=== PATIENT | female | born 1960 | race Caucasian/White ===

== ENCOUNTER 2018-07-20 11:11 | Outpatient (CLI) | payer OTHER ==
--- NOTE | 2018-07-20 12:31 | RAD ---
PA AND LATERAL VIEWS CHEST: HISTORY: TRC. FINDINGS: Comparison is made with the exam of 07/31/2017. The heart size is normal. The aorta is tortuous. The lungs are expanded without focal areas of cons olidation, pneumothoraces, or pleural effusions. No acute osseous abnormalities are seen. IMPRESSION: No radiographic evidence of acute cardiopulmonary process. POS: NIRAJH
== END 2018-07-20 11:12 | disposition home or self-care (01) ==
LOC: BICRAD 11:11
PROVIDERS: ATTEND Internal Medicine
DX: Z02.71 Encounter for disability determination (principal)
CPT/HCPCS: 71046

== ENCOUNTER 2019-11-25 03:01 | Observation (INO) | payer MEDICARE, MEDICAID ==
[2019-11-25 04:11] LABS: Troponin I Less than 0.010 ng/mL (< 0.028)
[2019-11-25 04:41] VITALS: BMI 37.1
[2019-11-25] MEDS ORDERED: hydrALAZINE 20 MG/ML VIAL SLOW IVP PRN (04:50)
[2019-11-25] MEDS ORDERED: Ondansetron ODT 4 MG TAB PO PRN (04:50)
[2019-11-25] MEDS ORDERED: Acetaminophen 500 MG TAB PO PRN (04:50)
[2019-11-25] MEDS ORDERED: Ondansetron PF 4 MG/2 ML Vial IVP PRN (04:50)
--- NOTE | 2019-11-25 06:09 | HP ---
PRIMARY CARE PROVIDER: Dr. Villanueva. CHIEF COMPLAINT: Chest pain. HISTORY OF PRESENT ILLNESS: This is a 59-year-old female, who presents to [facility] in transfer from [facility], where the patient has complained of approximately 48-hour history of central chest pain radiating to the left upper shoulder and upper back. The patient states that the pain would occur at rest or with movement, progressing in the last 24 hours. The patient denied any direct trauma, injury, increased cough, congestion, or fever. The patient denied any exposure history or travel. The patient denies any known history of coronary artery disease and states she previously was taking aspirin 81 mg daily, but ran out of the medication in the last 4 weeks. The patient states she has been compliant with her other chronic medications and states she has a history of stroke with residual dysarthria and some leg weakness. The patient denies any strong family history of coronary artery disease, but states she has never had a formal stress test. The patient initially described the pain as pressure-like, rating at 6/10, worse with movement and relieved after burping. In the emergency room, the patient received aspirin 325 mg with initial workup unrevealing. EKG showed no acute process, and the patient was referred to the Hospitalist Service for evaluation. PAST MEDICAL HISTORY: 1. History of hemorrhagic CVA. 2. History of lacunar infarcts. 3. 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 4. Hypertension. 5. Chronic obstructive pulmonary disease. 6. Hyperlipidemia. 7. Remote tobacco use. PAST SURGICAL HISTORY: 1. Status post section x2. 2. Status post cholecystectomy. CURRENT MEDICATIONS: 1. Amlodipine 10 mg p.o. daily. 2. Lisinopril/hydrochlorothiazide 10/12.5 mg one tablet p.o. daily. 3. Carvedilol 3.125 mg p.o. b.i.d. ALLERGIES: TO CODEINE SULFATE. FAMILY HISTORY: No inheritable diseases per patient or report. SOCIAL HISTORY: Resides in [place], [place]. Lives with her daughter. Disabled. Quit smoking in the last five years. No alcohol or illicit drug use. REVIEW OF SYSTEMS: CONSTITUTIONAL: Negative for weight loss or gain, ability to conduct usual activities. SKIN: Negative for rash, itching. EYES: Negative for double vision, pain. ENT/MOUTH: Negative for nose bleeding, neck stiffness, pain, tenderness. CARDIOVASCULAR: Negative for palpitations, dyspnea on exertion, orthopnea. RESPIRATORY: Negative for shortness of breath, wheezing, cough, hemoptysis, fever or night sweats. GASTROINTESTINAL: Negative for poor appetite, abdominal pain, heartburn, nausea, vomiting, constipation, or diarrhea. GENITOURINARY: Negative for urgency, frequency, dysuria, nocturia. MUSCULOSKELETAL: Negative for pain, swelling. NEUROLOGIC/PSYCHIATRIC: Negative for anxiety, depression. ALLERGY/IMMUNOLOGIC: Negative for skin rash, bleeding tendency. Otherwise negative except as stated per HPI. PHYSICAL EXAMINATION: VITAL SIGNS: On admission, blood pressure 115/89, pulse 58, respiratory rate 17, temperature 97.7 degrees Fahrenheit, and O2 saturation 95% on room air. GENERAL APPEARANCE: This is a 59-year-old female, alert and oriented x3, pleasant, responsive, in no acute distress. HEENT: Pupils are equal, round, and reactive to light and accommodation. Her extraocular muscles are intact. No scleral icterus. No conjunctival injection. Nares are patent. OP is clear. Teeth in fair repair. NECK: Supple. No cervical adenopathy. No thyromegaly. No carotid bruits. No JVD appreciated. Cervical spine with full active and passive range of motion. No meningeal signs noted. LUNGS: Diminished breath sounds in the bases bilaterally, otherwise clear. CARDIOVASCULAR: S1 and S2 without noted murmur, rub, or gallop. ABDOMEN: Obese, soft, nontender, and nondistended. Bowel sounds are positive in all 4 quadrants. There is no hepatosplenomegaly. No abdominal bruits. No rebound or guarding appreciated. EXTREMITIES: Warm and dry with fair turgor. No clubbing, cyanosis, or asymmetric edema appreciated. Pulses are palpable distally at the dorsalis pedis, posterior tibial, and popliteal arteries bilaterally. Capillary refill less than 2 seconds. NEUROLOGIC: Mild dysarthria. Bilateral lower extremity leg weakness noted. The patient not observed ambulatory during this exam. PERTINENT LABORATORY AND X-RAY FINDINGS: Sodium 143, potassium 3.3, chloride 105, CO2 of 25, BUN 18, creatinine 0.92, estimated GFR of 63, glucose 83, and calcium 9.5. Troponin I negative x2. BNP 10, lipase 8. CBC showed a white blood cell count of 6.9, hemoglobin 15, hematocrit 46, platelet count 148 with normal differential. EKG dated 11/25/2019, by my interpretation shows sinus bradycardia with heart rates in the 50s. Normal R-wave progression noted in the precordial leads. Normal axis. No acute ST-T wave changes appreciated. Portable chest x-ray dated 11/24/2019, showed no acute cardiopulmonary process. CT angiogram of the chest dated 11/24/2019, showed no evidence for pulmonary embolus. ASSESSMENT AND PLAN: 1. Chest pain. The patient will be observed on the telemetry unit. We will proceed with Cardiolite stress testing in the a.m. Check fasting lipid profile. Continue aspirin 81 mg daily. 2. Gastroesophageal reflux. Suspected component of patient's presentation. Continue Pepcid 20 mg p.o. b.i.d. 3. Hypertension. Resume home blood pressure regimen and monitor clinical response. 4. Hyperlipidemia. Check fasting lipid profile in the a.m. 5. Prophylaxis. SCDs while in bed. Pepcid 20 mg p.o. b.i.d. 6. Code status is full. Surrogate medical decision maker is patient's spouse. Job ID: [id number]
[2019-11-25 07:43] LABS: Troponin I Less than 0.010 ng/mL (< 0.028)
[2019-11-25] MEDS ORDERED: Aspirin 325 mg Enteric Coated Tablet PO SCH (09:00)
[2019-11-25] MEDS ORDERED: Carvedilol 3.125 MG TAB PO SCH (09:00)
[2019-11-25] MEDS ORDERED: Lisinopril/Hydrochlorothiazide 10 mg/12.5 mg Tablet PO SCH (09:00)
[2019-11-25] MEDS ORDERED: Amlodipine 10 MG TAB PO SCH (09:00)
[2019-11-25] MEDS ORDERED: Famotidine 20 MG TAB PO SCH (09:00)
[2019-11-25] MEDS ORDERED: Regadenoson 0.4 MG/5 ML SYRINGE ONE (09:34)
[2019-11-25 11:20] VITALS: BP 117/59
[2019-11-25 12:20] VITALS: TEMP 98.8
--- NOTE | 2019-11-25 12:26 | NM ---
NUCLEAR MEDICINE CARDIAC STRESS WITH EF AND WALL MOTION: HISTORY: Chest pain. COMPARISON: None. TECHNIQUE: Stress only images were performed. Patient was administered 29.40 mCi of technetium 99m se stamibi. FINDINGS: Homogeneous distribution of the radiotracer. End-diastolic volume is 89 mL. End systolic volume is 30 mL. Cardiac gating: Normal wall motion and thickening. 67% ejection fraction. IMPRESSION: 1. Homogeneous distribution of radiotracer. 2. 67% ejection fraction. Transcribed Date/Time: 11/25/2019 1:00 PM
[2019-11-25 13:58] LABS: Troponin I Less than 0.010 ng/mL (< 0.028)
--- NOTE | 2019-11-25 14:32 | DIS ---
DATE OF ADMISSION: 11/25/2019 DATE OF DISCHARGE: 11/25/2019 PRIMARY CARE PROVIDER: Dr. Sybil Villanueva. DISCHARGE DIAGNOSES: 1. Chest pain. 2. Chest pain, most likely secondary to musculoskeletal etiology. DISCHARGE MEDICATIONS: No change was made to her pre-admission home medications. HOSPITAL COURSE: Ms. Rainey is a pleasant 59-year-old lady, who was admitted to [facility] on November 25, 2019 for chest pain. Please refer to Dr. Boone's history and physical note dated November 25, 2019. CT scan of the chest did not show any evidence of pulmonary thromboembolism. She had a left adrenal mass. She has been advised to follow up with her primary care provider for the same. She also had nuclear stress test, which showed homogeneous distribution of the tracer. Left ventricular ejection fraction was 67%. Chest pain resolved, and she is being discharged to home in a stable condition. POST ACUTE CARE FOLLOWUP: With primary care provider in 3 days. DISCHARGE DESTINATION: Home. DIET: Heart healthy. Job ID: [id number]
[2019-11-25] MEDS ORDERED: Atorvastatin Calcium 40 MG TAB PO SCH (21:00)
--- NOTE | 2019-11-29 14:46 | EKG ---
Test Reason : Blood Pressure : / mmHG Vent. Rate : 057 BPM Atrial Rate : 057 BPM P-R Int : 174 ms QRS Dur : 094 ms QT Int : 448 ms P-R-T Axes : 057 006 009 degrees QTc Int : 436 ms Sinus bradycardia No ST elevation Otherwise normal ECG Confirmed by ALVERTO PAGE M.D. ([id number]), editor & co founder KELSEY ORTIZ ([id number] on 11/29/2019 2:46:34 PM Referred By: Confirmed By:ALVERTO PAGE M.D.
--- NOTE | 2019-12-04 11:38 | STRESS ---
Acquisition Time: 2019-11-25 09:29:12 Total Exercise Time: 00:01:00 Test Indications: CHEST PAIN Medications: Protocol: LEXISCAN Max HR: 093 BPM 57% of Pred: 162 BPM Max BP: 112/068 mmHG Max Work Load: 1.0 METS THE PATIENT WAS INJECTED WITH LEXISCAN. SHE DID NOT DEVELOP CHEST PAIN. THERE WAS NO ST DEPRESSION. AWAIT NUCLEAR IMAGES FOR DEFINITIVE DIAGNOSIS. Confirmed by LESLEE VARGAS ([id number]), editor school photograph ANN-MARIE PALM ([id number]) on 12/04/2019 11:37:50 AM Referred By: DO Klarissa BURNETT Confirmed By:LESLEE VARGAS
== END 2019-11-25 15:19 | disposition home or self-care (01) ==
LOC: ERS 03:01 → 2SW 04:01
PROVIDERS: ADMIT Family Medicine; ATTEND Family Medicine
DX: R07.9 Chest pain, unspecified (principal); I10 Essential (primary) hypertension; J44.9 Chronic obstructive pulmonary disease, unspecified; E78.5 Hyperlipidemia, unspecified; K21.9 Gastro-esophageal reflux disease without esophagitis; Z79.899 Other long term (current) drug therapy; Z86.73 Personal history of transient ischemic attack (TIA), and cerebral infarction without residual deficits; Z87.891 Personal history of nicotine dependence; Z88.5 Allergy status to narcotic agent
CPT/HCPCS: 78452; 84484 ×2; 93005; 93017; 99285; A9500; G0378; 36415; J2785

== ENCOUNTER 2025-05-02 14:07 | Outpatient (CLI) | payer OTHER, MEDICAID | END 2025-05-02 14:08 | disposition home or self-care (01) | LOC: ULT 14:07 | PROVIDERS: ATTEND Family Medicine | DX: N17.9 Acute kidney failure, unspecified (principal) | CPT/HCPCS: 76770 ==